=== PATIENT | male | born 1975 | race Hispanic/Latino ===

== ENCOUNTER 2020-11-30 23:34 | Observation (INO) | payer MEDICAID ==
[~2020-11-30] VITALS: Ht 162.6 cm; Wt 62.0 kg
--- NOTE | 2020-11-30 23:59 | NUR ---
Reassessment of patient completed.
[2020-12-01] VITALS (9 sets, daily range): BP systolic 93–130; BP diastolic 62–84
[2020-12-01 00:35] LABS: HEMATOCRIT 41.8 % (39.0-50.0); HEMOGLOBIN 14.1 g/dl (14.0-18.0); IMMATURE GRANULOCYTES 0.3 % (0.0-5.0); MEAN CELL VOLUME 92.1 fL CALC (80.0-100.0); MEAN CORPUSCULAR HGB 31.1 pG CALC (26.0-32.0); MEAN CORPUSCULAR HGB CONC 33.7 g/dL CAL (32.0-36.0); NEUT# 7.42 thou/uL (1.82-7.42); RED BLOOD COUNT 4.54 mill/uL (4.70-6.10); RED CELL DISTRI WIDTH 12.6 % (11.5-15.5)
--- NOTE | 2020-12-01 01:04 | NUR ---
Reassessment of patient completed. SPOUSE AT BEDSIDE.
[2020-12-01 01:05] LABS: ALBUMIN 4.8 g/dL (3.2-5.0); ALKALINE PHOSPHATASE 94 u/l (38-126); AMYLASE 82 u/l (30-110); ANION GAP 17 (6-22 (CALC)); BILIRUBIN, TOTAL 1.3 mg/dL (0.0-1.4); BUN 14 mg/dL (9-20); BUN/CREATININE RATIO 13 (12-20 (CALC)); CARBON DIOXIDE 22 mmol/l (22-30); CHLORIDE 104 mmol/l (95-108); CREATININE 1.1 mg/dL (0.7-1.3); ETHYL ALCOHOL 16 mg/dl (0-30); GFR > 60 ML/MIN (>=60 (CALC)); GFR FOR AFR.AMER. > 60 ML/MIN (>=60 (CALC)); LIPASE 127 u/l (23-300); POTASSIUM 3.7 mmol/l (3.5-5.1); SGOT/AST 31 u/l (17-59); SODIUM 139 mmol/l (137-146); TOTAL PROTEIN 8.4 g/dL (6.3-8.2)
[2020-12-01 01:20] LABS: INTERNATIONAL NORMALIZED RATIO 1.1 RATIO (0.7-1.3); PROTHROMBIN TIME 11.1 SECONDS (9.0-12.5)
[2020-12-01 01:49] LABS: URINE BILIRUBIN - DIPSTICK NEGATIVE (NEGATIVE); URINE BLOOD DIPSTICK LARGE (NEGATIVE); URINE COLOR YELLOW; URINE GLUCOSE - DIPSTICK NEGATIVE (NEGATIVE); URINE KETONE 40 mg/dL (NEGATIVE); URINE LEUK ESTERASE NEGATIVE (NEGATIVE); URINE NITRITE - DIPSTICK NEGATIVE (Negative); URINE PH 7.5 (4.5-8.0); URINE PROTEIN - DIPSTICK NEGATIVE (NEG-TRACE); URINE UROBILINOGEN - DIPSTICK 0.2 E.U./dL (0.2)
[2020-12-01 02:09] LABS: URINE RBC 25-50 RBC/hpf (0-5); URINE SQUAMOUS EPITHELIAL CELL FEW EPI/hpf (0-FEW); URINE WBC 0-2 WBC/hpf (0-5)
--- NOTE | 2020-12-01 03:03 | NUR ---
Admission Note Report Given to: SHIVANI CAMACHO Transported by: X Wheelchair Stretcher Transported with: X Nurse Transporter X Patent IV O2 Dry Dip Worker Location: ICU X [facility]
--- NOTE | 2020-12-01 03:15 | NUR ---
PT RECEIVED FROM ED TO ROOM 262. ARRIVES VIA W/C ACCOMPANIED BY LUKE ROBERSON. PT AMBULATORY TO BED. GAIT STEADY. PT DENIES PAIN AT THIS TIME. ORIENTED TO UNIT, ROOM, CALL LIND, LIGHTS, TV. ICE WATER PROVIDED. CALL LIND WITHIN REACH. AGREES TO CALL PRN.
--- NOTE | 2020-12-01 03:35 | NUR ---
PHYSICAL ASSESMENT COMPLETE. PT CURRENTLY DENIES PAIN OR DISCOMFORT. SCHEDULED MEDICATIONS AND PRN MEDICATION ADMINISTERED, SEE E-MAR. PT DENIES ANY NEEDS AT THIS TIME. PLAN OF CARE REVIEWED, PT DENIES QUESTIONS, VERBALIZES UNDERSTANDING. ITEMS WITHIN REACH, BED LOCKED IN LOW POSITION W/ BEDRAILS UP X2. CALL LIND WITHIN REACH, AGREES TO CALL PRN.
--- NOTE | 2020-12-01 08:05 | NUR ---
ASSESSMENT IS COMPLTED: IV SITE IS FREE FROM REDNESS OR EDEMA , HR IS REG,PULSES ARE STRONG X4. ABD IS SOFT AND TENDER. BREATH SOUNDS ARE CLEAR,BILATERALLY.
--- NOTE | 2020-12-01 08:28 | NUR ---
DR ANNE'S OFFICE NOTIFIED ER TO MAKE SURE PT IS MPO
--- NOTE | 2020-12-01 12:10 | NUR ---
PT IS RELAXING IN BED, NO DISTRESS NOTED. IV SITE IS FREE FROM REDNESS OR EDEMA.
--- NOTE | 2020-12-01 12:30 | NUR ---
PT SIGNED CONSENT FOR ANESTHESIA WITH BHAVANA CAMACHO AND ALSO NIC GOTTLIEB RN INTERPRETING. PT DOES UNDERSTAND [place], INQUIRED IF HE WOULD PREFER TO HAVE THE INSTRUCTION FOR SURGERY IN [place]ER [place] OR [place]. PREFERED [place]. CONTINUE TO OBSERVE AND MONITOR.
--- NOTE | 2020-12-01 12:46 | NUR ---
INFORMED SURGICAL CONSENT OBTAINED, BHAVANA LY CRNA AT BEDSIDE TO OBTAIN ANESTHESIA CONSENT. PT VERBALIZED UNDERSTANDING.
--- NOTE | 2020-12-01 14:15 | NUR ---
PT C/O PAIN, JAY JAYW MIRIAM MARQUEZ RN IN OR INQUIRED IF ABLE TO GIVE PAIN MEDICATIONS , IF PT SIGNED THE CONSENT THEN "YES". GAVE DILAUDID.
--- NOTE | 2020-12-01 14:42 | NUR ---
PT BEING TAKEN TO OR VIA STRETCHER WITH STAFF. SPOUSE AT HIS SIDE.
--- NOTE | 2020-12-01 16:00 | NUR ---
PT REMAINS IN OR
--- NOTE | 2020-12-01 17:30 | NUR ---
PT RETURNED FROM OR VIA STRETCHER WITH STAFF, ABLE TO TRANSFER TO BED. IV SITE IS FREE FROM REDNESS OR EDEMA. CONTINUE TO OSBERVE AND MONITOR.
[2020-12-02] VITALS: BP 103/57
--- NOTE | 2020-12-02 00:12 | NUR ---
PT LAYING IN BED WITH EYES CLOSED, APPEARS TO BE SLEEPING, APPEARS COMFORTABLE AND IN NO DISTRESS. RESPIRATIONS REGULAR AND UNLABORED. ITEMS REMAIN WITHIN REACH, CALL LIND REMAINS WITHIN REACH. BED REMAINS LOCKED AND IN LOW POSITION WITH BEDRAILS UP X2. WILL CONTINUE TO MONITOR.
[2020-12-02 04:00] VITALS: BP 108/65
--- NOTE | 2020-12-02 04:01 | NUR ---
PT RESTING IN BED, NO SIGNS OF DISTRESS NOTED, RESP EVEN AND UNLABORED. PT VOICES NO NEEDS OR COMPLAINTS AT THIS TIME. CALL LIGHT IN REACH, CONTINUE TO MONITOR.
--- NOTE | 2020-12-02 05:42 | NUR ---
PT C/O OF BLADDER DISCOMFORT AND URGENCY. BLADDER SCAN REVIELED 800 ML URINE RETENTION. wILL CONTACT DR ANNE AND ADVISE.
[2020-12-02 07:44] VITALS: BP 108/66
--- NOTE | 2020-12-02 07:44 | NUR ---
PT LAYING IN BED. A&O X4. NO DISTRESS NOTED. PT DENIES ANY PAIN AT THIS TIME. CLEAR BREATH SOUNDS HEARD UPON AUSCULTATION. ACTIVE BOWEL SOUNDS X4 QUADRANTS. BRADEN CATHETER INSERTED DUE TO URINARY RETENTION BY PREVIOUS SHIFT PER 'S ORDERS, PT EDUCATED ON THE NEED OF THE BRADEN CATHETER, PT VERBALIZED UNDERSTANDING. BRADEN CATHETER DRAINING VIA GRAVITY WITH TEA COLORED URINE, BRADEN CATHTER COLLECTION BAG EMPTIED , 1300 CC. ASSESSMENT COMPLETED. DISCUSSED POC. CALL LIGHT AND PERSONAL BELONGINGS WITHIN REACH.
[2020-12-02] MEDS ORDERED: TAMSULOSIN HCL0.4 MG PO (09:22)
[2020-12-02] MEDS ORDERED: CIPROFLOXACN500 MG PO (09:24)
[2020-12-02] MEDS ORDERED: TRAMADOL HCL50 MG PO (09:24)
--- NOTE | 2020-12-02 12:04 | NUR ---
CATHETER LEG STARP APPLIED. 800 CC OF URINE EMPTIED FROM BRADEN CATHETER COLLECTION BAG. COLOR OF URINE IMPROVING.
--- NOTE | 2020-12-02 12:21 | NUR ---
D/C INSTRUCTIONS GIVEN TO PT AND IN JAPANESE. IV INTACT UPON REMOVAL
--- NOTE | 2020-12-02 12:27 | NUR ---
Discharge instructions given to pt and in greek. Patient verbalizes understanding of same. Discharged in stable condition via wheelchair to home with staff. All belongings sent with pt. Pt educated and demonstrated on how to empty piper collection bag. Pt encourgaed to return if hematuria noted or if new worsening symptoms arise. Urinal given to pt to empty piper. Information regarding Dr Lr given.
== END 2020-12-02 12:27 | disposition home or self-care (01) | DRG 660 ==
LOC: ED 23:34 → ED-I 12-01 02:10 → ED 12-01 02:29 → MS2 12-01 02:30
PROVIDERS: ADMIT Internal Medicine; ATTEND Internal Medicine
PROC: 0TC68ZZ Extirpation of Matter from Right Ureter, Via Natural or Artificial Opening Endoscopic (ICD-10-PCS; principal; 2020-12-01)
PROC: 0T768DZ Dilation of Right Ureter with Intraluminal Device, Via Natural or Artificial Opening Endoscopic (ICD-10-PCS; 2020-12-01)
PROC: 0T9B70Z Drainage of Bladder with Drainage Device, Via Natural or Artificial Opening (ICD-10-PCS; 2020-12-02)
DX: N13.2 Hydronephrosis with renal and ureteral calculous obstruction (principal); E87.2 Acidosis; R33.9 Retention of urine, unspecified; Z20.822 Contact with and (suspected) exposure to COVID-19
CPT/HCPCS: G0378; Q9967